=== PATIENT | female | born 1990 | race Caucasian/White ===

== ENCOUNTER 2021-07-29 13:43 | Emergency (ER) | payer OTHER ==
[~2021-07-29] VITALS: Ht 172.7 cm; Wt 94.3 kg
[~2021-07-29 13:43] MED LIST: PEPCID20 MG PO
[2021-07-29] MEDS ORDERED: ACID REDUCER20 M1 PO (14:12)
== END 2021-07-29 18:59 | disposition home or self-care (01) ==
LOC: ER 13:43
DX: K80.20 Calculus of gallbladder without cholecystitis without obstruction (principal); Z88.0 Allergy status to penicillin